=== PATIENT | female | born 1965 | race Caucasian/White ===

== ENCOUNTER 2016-11-29 15:54 | Emergency (ER) ==
[2016-11-29 15:54] VITALS: BMI 21.9
[2016-11-29 15:59] VITALS: BP 121/83; TEMP 98.2
[2016-11-29] MEDS ORDERED: DECADRON 4 MG/ML SDV IM STA (16:15)
[2016-11-29] MEDS ORDERED: TORADOL IM STA (16:15)
--- NOTE | 2016-11-29 17:17 | ED.PDOC ---
General ED Provider: Dr. BETHANY BENÍTEZ Chief Complaint: Foot Pain/Injury Stated Complaint: left foot pain Time Seen by Physician: 16:00 Mode of Arrival: Walk-In Information Source: Patient Exam Limitations: No limitations [facility] and Triage Documentation Reviewed and Agree: Yes Musculoskeletal Complaint Exam - Ankle/Foot Complaint/Exam Location of Injury: Reports: Left, Ankle, Foot Mechanism of Injury: Reports: No known trauma Onset/Duration: 1 day Symptoms Are: Reports: Still present Onset of Pain: Reports: Hours Initial Severity: Moderate Current Severity: Moderate Location: Reports: Discrete (big toe lefty) Character: Reports: Throbbing Alleviating: Reports: None Aggravating: Reports: None Able to Bear Weight: Yes Associated Signs and Symptoms: Denies: Swelling, Redness, Bruising, Fever, Weakness, Numbness, Tingling Related History: Reports: Similar episode Gout Risk Factors: Reports: >40 years old, HTN Related Surgical History: Reports: None Differential Diagnosis: Gout Review of Systems - Review Of Systems Constitutional: Reports: No symptoms Eyes: Reports: No symptoms Ears, Nose, Mouth, Throat: Reports: No symptoms Respiratory: Reports: No symptoms Cardiac: Reports: No symptoms GI: Reports: No symptoms : Reports: No symptoms Musculoskeletal: Reports: No symptoms Skin: Reports: No symptoms Neurological: Reports: No symptoms Endocrine: Reports: No symptoms Hematologic/Lymphatic: Reports: No symptoms All Other Systems: Reviewed and Negative Past Medical History - Past Medical History Previously Healthy: Yes Endocrine: Reports: None Cardiovascular: Reports: Hypertension Respiratory: Reports: None Hematological: Reports: None Gastrointestinal: Reports: None Genitourinary: Reports: None Neuro/Psych: Reports: None Musculoskeletal: Reports: None, Gout Cancer: Reports: None Last Menstrual Period: tubal ligation - Surgical History General Surgical History: Reports: None - Family History Family History: Reports: None - Social History Smoking Status: Current some day smoker Hx Substance Use: No Alcohol Screening: None Physical Exam - Physical Exam Appearance: Well-appearing, No pain distress, Well-nourished Eyes: JHONATAN, EOMI, Conjunctiva clear ENT: Ears normal, Nose normal, Oropharynx normal Respiratory: Airway patent, Breath sounds clear, Breath sounds equal, Respirations nonlabored Cardiovascular: RRR, Pulses normal, No rub, No murmur GI/: Soft, Nontender, No masses, Bowel sounds normal, No Organomegaly Musculoskeletal: Normal strength, ROM intact, No edema, No calf tenderness Skin: Warm, Dry, Normal color Neurological: Sensation intact, Motor intact, Reflexes intact, Cranial nerves intact, Alert, Oriented Psychiatric: Affect appropriate, Mood appropriate Critical Care Note - Critical Care Note Total Time (mins): 0 Course - Course Orders, Labs, Meds: Lab Review 11/29/16 16:45 Uric Acid 7.3 H Orders Category Date Time Status URIC ACID Stat LAB 11/29/16 16:45 Completed Dexamethasone 4 mg/ml Inj [Decadron 4 mg/ml Sdv] MEDS 11/29/16 16:15 Discontinued 4 mg IM ONCE STA Ketorolac Tromethamine [Toradol] MEDS 11/29/16 16:15 Discontinued 60 mg IM ONCE STA Medications Discontinued Medications Generic Name Dose Route Start Last Admin Trade Name Freq PRN Reason Stop Dose Admin Dexamethasone Sodium Phosphate 4 mg 11/29/16 16:15 11/29/16 16:32 Decadron 4 Mg/Ml Sdv IM 11/29/16 16:16 4 mg ONCE STA Administration Ketorolac Tromethamine 60 mg 11/29/16 16:15 11/29/16 16:30 Toradol IM 11/29/16 16:16 60 mg ONCE STA Administration Vital Signs: Temp Pulse Resp BP Pulse Ox 11/29/16 15:54 98.2 F 87 16 121/83 97 Departure - Departure Time of Disposition: 17:17 Disposition: HOME SELF-CARE Discharge Problem: Gout attack Qualifiers: Gout site: foot Gout etiology: unspecified cause Laterality: left Qualifier Code: (M10.9) Gout, unspecified Instructions: Gout (ED) Condition: Good Pt referred to PMD for follow-up: No Additional Instructions: Please call your Family Physician as soon as possible to schedule a follow-up appointment. Allergies/Adverse Reactions: Allergies No Known Allergies Allergy (Verified 11/29/16 15:59) Disposition Discussed With: Patient, Family
== END 2016-11-29 17:33 | disposition home or self-care (01) ==
LOC: ED 15:54
DX: M10.9 Gout, unspecified (principal); I10 Essential (primary) hypertension; F17.210 Nicotine dependence, cigarettes, uncomplicated
CPT/HCPCS: 36415; 84550; 96372; 99282

== ENCOUNTER 2017-07-15 10:35 | Emergency (ER) ==
[2017-07-15 10:35] VITALS: BMI 21.9
[2017-07-15 10:39] VITALS: BP 147/88; TEMP 98.9
--- NOTE | 2017-07-15 10:45 | ED.PDOC ---
General ED Provider: Dr. CARMEN LAMA JR Chief Complaint: Foot Pain/Injury Stated Complaint: HAVING A FLARE-UP OF GOUT HAS HAD FLARE-UPS IN THE PAST. [ End ]98.9 89 18 100 147/88 100% 147/88 05/18. ON ALLO PURINOL IN THE PAST NOT CURRENTLY TRIED WITH LAST FLARE AND DID NOT HELP, DECLINES X-RAY"I DID NOT HURT IT LIKE THAT". Dexamethasone Sodium Phosphate 4 mg 11/29/16. Ketorolac Tromethamine 60 mg 11/29/16 16:15. Hydrocodone/Acetaminophen [[place] 10-325 Tablet] 1 each PO Q6HR PRN #12 tablet 01/01/16. Indomethacin [Indocin] 50 mg PO BIDWM #10 capsule 01/01/16. Acetaminophen/Hydrocodone Bitart 1 tab04/01/14. Dexamethasone Sodium Phosphate 8 mg04/01/14. Ketorolac Tromethamine 60 mg Time Seen by Physician: 10:46 Mode of Arrival: Walk-In Information Source: Patient Exam Limitations: No limitations [facility] T[facility] Documentation Reviewed and Agree: No Review of Systems - Review Of Systems Constitutional: Reports: No symptoms Eyes: Reports: No symptoms Ears, Nose, Mouth, Throat: Reports: No symptoms Respiratory: Reports: No symptoms Cardiac: Reports: No symptoms GI: Reports: No symptoms : Reports: No symptoms Musculoskeletal: Reports: Gout, Joint pain Skin: Reports: Change in color Neurological: Reports: No symptoms Endocrine: Reports: No symptoms Hematologic/Lymphatic: Reports: No symptoms All Other Systems: Other Past Medical History - Past Medical History Previously Healthy: Yes Endocrine: Reports: None Cardiovascular: Reports: [place], Hypertension Respiratory: Reports: None Hematological: Reports: None Gastrointestinal: Reports: None Genitourinary: Reports: None Neuro/Psych: Reports: None Musculoskeletal: Reports: None, Gout Cancer: Reports: None Last Menstrual Period: N/A - Surgical History General Surgical History: Reports: Tubal ligation, - Family History Family History: Reports: Other (sister and father with gout) - Social History Smoking Status: Current some day smoker Hx Substance Use: No Alcohol Screening: None - Immunizations Tetanus Shot up to Date: Yes Physical Exam - Physical Exam Appearance: Well-appearing, Thin Pain Distress: Moderate Neck: Supple Respiratory: Airway patent Musculoskeletal: No calf tenderness (TENDER ENTIRE FOOT NOT INTO ANKLE NO ERYTHEMA NOTED PAINFUL 3-4 DAYS), Edema Critical Care Note - Critical Care Note Total Time (mins): 0 Course - Course Orders, Labs, Meds: Orders Category Date Time Status Ketorolac Tromethamine [Toradol] MEDS 07/15/17 10:55 Discontinued 60 mg IM ONCE STA Methylprednisolone Sod Succ/Pf [Solu-Medrol 125 mg] MEDS 07/15/17 10:55 Discontinued 125 mg IM ONCE STA Medications Discontinued Medications Generic Name Dose Route Start Last Admin Trade Name Hong PRN Reason Stop Dose Admin Ketorolac Tromethamine 60 mg 07/15/17 10:55 07/15/17 11:14 Toradol IM 07/15/17 10:56 60 mg ONCE STA Administration Methylprednisolone Sodium Succinate 125 mg 07/15/17 10:55 07/15/17 11:14 Solu-Medrol 125 Mg IM 07/15/17 10:56 125 mg ONCE STA Administration Vital Signs: Temp Pulse Resp BP Pulse Ox 07/15/17 10:36 98.9 F 89 18 147/88 H 100 Departure - Departure Time of Disposition: 11:50 Disposition: HOME SELF-CARE Discharge Problem: Foot pain, right Instructions: Low Purine Diet (ED), Gout (ED), Metatarsalgia (GEN) Condition: Good Pt referred to PMD for follow-up: Yes Additional Instructions: may try indocin gfor pain recheck PMD one week discuss allopurinol and colchicine for gout episodes note that this episode is not typical gout return if fever over 101.0 if new symptoms Allergies/Adverse Reactions: Allergies No Known Allergies Allergy (Verified 07/15/17 10:39)
[2017-07-15] MEDS ORDERED: SOLU-MEDROL 125 MG IM STA (10:55)
[2017-07-15] MEDS ORDERED: TORADOL IM STA (10:55)
== END 2017-07-15 11:55 | disposition home or self-care (01) ==
LOC: ED 10:35
DX: M79.671 Pain in right foot (principal); F17.210 Nicotine dependence, cigarettes, uncomplicated
CPT/HCPCS: 96372; 99282

== ENCOUNTER 2017-07-19 07:04 | Emergency (ER) ==
[2017-07-19 07:05] VITALS: BMI 21.9
[2017-07-19 07:09] VITALS: BP 130/92; TEMP 97.9
--- NOTE | 2017-07-19 07:26 | ED.PDOC ---
General ED Provider: Dr. BETHANY BENÍTEZ Chief Complaint: Foot Pain/Injury Stated Complaint: right foot pain Time Seen by Physician: 07:12 (returns after 4 days gout pain has returned ) Mode of Arrival: Walk-In Information Source: Patient Exam Limitations: No limitations [facility] T[facility] Documentation Reviewed and Agree: Yes Musculoskeletal Complaint Exam - Ankle/Foot Complaint/Exam Location of Injury: Reports: Right, Foot, Toe #1 Mechanism of Injury: Reports: No known trauma Onset/Duration: 4 days Symptoms Are: Reports: Still present Onset of Pain: Reports: Immediate Initial Severity: Moderate Current Severity: Moderate Location: Reports: Discrete Character: Reports: Aching Alleviating: Reports: Rest Aggravating: Reports: Movement, Weight bearing Able to Bear Weight: Yes Associated Signs and Symptoms: Denies: Swelling, Redness, Bruising, Fever, Weakness, Numbness, Tingling Related History: Reports: Similar episode Gout Risk Factors: Reports: >40 years old Related Surgical History: Reports: None Lower Extremity Findings: Present: Warmth, Tenderness (big toe see photos), Limited range of motion. Absent: Swelling, Ecchymosis, Abnormal contour, Rotation, Ligamentous instability, Laceration, Erythema, Blisters, Other joint pain, Foreign body Achilles Tendon Abnormality: No Tenderness: Present: Digits (number 1) Limited Range of Motion: Present: Dorsiflexion, Plantarflexion. Absent: Inversion, Eversion Differential Diagnosis: Gout Review of Systems - Review Of Systems Constitutional: Reports: No symptoms Eyes: Reports: No symptoms Ears, Nose, Mouth, Throat: Reports: No symptoms Respiratory: Reports: No symptoms Cardiac: Reports: No symptoms GI: Reports: No symptoms : Reports: No symptoms Musculoskeletal: Reports: Joint pain (big toe right ) Skin: Reports: No symptoms Neurological: Reports: No symptoms Endocrine: Reports: No symptoms Hematologic/Lymphatic: Reports: No symptoms All Other Systems: Reviewed and Negative Past Medical History - Past Medical History Previously Healthy: Yes Endocrine: Reports: None Cardiovascular: Reports: Hypertension Respiratory: Reports: None Hematological: Reports: None Gastrointestinal: Reports: None Genitourinary: Reports: None Neuro/Psych: Reports: None Musculoskeletal: Reports: None, Gout Cancer: Reports: None Last Menstrual Period: long time - Surgical History General Surgical History: Reports: None - Family History Family History: Reports: Other (sister and father with gout) - Social History Smoking Status: Current some day smoker Hx Substance Use: No Alcohol Screening: None Physical Exam - Physical Exam Appearance: Well-appearing, No pain distress, Well-nourished Eyes: JHONATAN, EOMI, Conjunctiva clear ENT: Ears normal, Nose normal, Oropharynx normal Respiratory: Airway patent, Breath sounds clear, Breath sounds equal, Respirations nonlabored Cardiovascular: RRR, Pulses normal, No rub, No murmur GI/: Soft, Nontender, No masses, Bowel sounds normal, No Organomegaly Musculoskeletal: Limited ROM (big toe right see photos) Skin: Warm, Dry, Normal color Neurological: Sensation intact, Motor intact, Reflexes intact, Cranial nerves intact, Alert, Oriented Psychiatric: Affect appropriate, Mood appropriate Critical Care Note - Critical Care Note Total Time (mins): 0 Course - Course Vital Signs: Temp Pulse Resp BP Pulse Ox 07/19/17 07:05 97.9 F 86 20 130/92 H 99 Departure - Departure Time of Disposition: 07:25 Disposition: HOME SELF-CARE Discharge Problem: Foot pain, right Instructions: Gout (ED), Low Purine Diet (ED) Condition: Good Pt referred to PMD for follow-up: Yes Additional Instructions: Please call your Family Physician as soon as possible to schedule a follow-up appointment.TAKE MEDS ON FULL STOMACH PLEASE Allergies/Adverse Reactions: Allergies No Known Allergies Allergy (Verified 07/19/17 07:09) Disposition Discussed With: Patient
== END 2017-07-19 07:43 | disposition home or self-care (01) ==
LOC: ED 07:04
DX: M79.671 Pain in right foot (principal); M10.9 Gout, unspecified; F17.210 Nicotine dependence, cigarettes, uncomplicated
CPT/HCPCS: 99282

== ENCOUNTER 2017-07-26 10:58 | Outpatient (CLI) ==
[2013-01-31 12:01] VITALS: TEMP 97
--- NOTE | 2017-07-26 11:32 | DI ---
EXAM: Three views of the right foot. History: Lateral right foot pain. Comparison: Right foot radiograph 04/01/2014 Findings: No acute fracture or dislocation. No abnormal calcifications or radiopaque foreign bodies . Joint spaces are preserved. Impression: No acute osseous abnormality
[2017-07-26 14:21] LABS: BASOPHILS % (AUTO) 0.5 % (0.0-3.0); EOSINOPHILS # (AUTO) 0.1 K/ul (0.0-0.7); EOSINOPHILS % (AUTO) 1.4 % (0.0-7.0); HEMATOCRIT 42.8 % (37.0-47.0); HEMOGLOBIN 14.5 g/dl (12.0-16.0); IMMATURE GRANULOCYTE % (AUTO) 0.3 % (0.0-5.0); LYMPHOCYTES # (AUTO) 2.2 K/uL (0.60-3.4); LYMPHOCYTES % (AUTO) 25.2 (10.0-50.0); MEAN CORPUSCULAR HEMOGLOBIN 35.6 pg (27.0-31.0); MEAN CORPUSCULAR HGB CONC 33.9 (31.8-35.4); MEAN CORPUSCULAR VOLUME 105.2 fl (81.0-99.0); MONOCYTES # (AUTO) 0.7 K/uL (0.4-2.0); MONOCYTES % (AUTO) 7.7 (0-10); NEUTROPHILS # (AUTO) 5.6 K/ul (2.0-6.9); NEUTROPHILS % (AUTO) 64.9; PLATELET COUNT 348 10^3/uL (140-440); RED BLOOD COUNT 4.07 10^6/ul (4.20-5.40); WHITE BLOOD COUNT 8.65 K/ul (4.6-10.2)
[2017-07-26 15:34] LABS: ALBUMIN 4.1 g/dL (3.4-5.0); ALBUMIN/GLOBULIN RATIO 0.89; ANION GAP 17.6; BILIRUBIN,TOTAL 0.5 mg/dL (0.00-1.20); BUN/CREATININE RATIO 9.09; CALCIUM 9.9 mg/dL (8.2-10.2); CHOL/HDL RATIO 2.8 (4.5-5.5); CREATININE 0.77 mg/dL (0.60-1.30); POTASSIUM 3.6 mmol/L (3.5-5.10); TOTAL PROTEIN 8.7 g/dL (6.4-8.2); URIC ACID 9.1 mg/dL (2.4-6.0)
== END 2017-07-26 10:59 | disposition home or self-care (01) ==
LOC: RAD 10:58
PROVIDERS: ATTEND Nurse Practitioner Family
DX: M79.671 Pain in right foot (principal); Z00.00 Encounter for general adult medical examination without abnormal findings; I10 Essential (primary) hypertension
CPT/HCPCS: 36415; 80053; 80061; 84443; 84550; 85025

== ENCOUNTER 2017-07-29 08:50 | Outpatient (CLI) ==
[2013-01-31 12:01] VITALS: TEMP 97
--- NOTE | 2017-07-30 08:51 | MAMMO ---
EXAM: Bilateral digital screening mammogram (2-D and 3-D) History: Screening Comparison: Bilateral mammogram 11/29/2015 Findings: MLO and CC views of bilateral breasts demonstrate scattered fibroglandular breast parenchy ma. CAD was reviewed by the radiologist. Tomosynthesis was performed. There are no dominant masses , no suspicious microcalcifications and no architectural distortions Impression: Stable negative mammogram. Recommend followup routine screening mammography in 1 year. BIRADS 1
== END 2017-07-29 08:51 | disposition home or self-care (01) ==
LOC: RAD 08:50
PROVIDERS: ATTEND Nurse Practitioner Family
DX: Z12.31 Encounter for screening mammogram for malignant neoplasm of breast (principal)
CPT/HCPCS: 77067

== ENCOUNTER 2017-08-11 13:34 | Outpatient (CLI) ==
[2013-01-31 12:01] VITALS: TEMP 97
[2017-08-04 10:43] VITALS: BMI 21.9
== END 2017-08-11 13:35 | disposition home or self-care (01) ==
LOC: LAB 13:34
PROVIDERS: ATTEND Nurse Practitioner Family
DX: M1A.0710 Idiopathic chronic gout, right ankle and foot, without tophus (tophi) (principal)
CPT/HCPCS: 36415; 80053; 84550

== ENCOUNTER 2017-09-16 13:57 | Outpatient (CLI) ==
[2013-01-31 12:01] VITALS: TEMP 97
[2017-08-04 10:43] VITALS: BMI 21.9
--- NOTE | 2017-09-16 14:20 | DI ---
Exam: Three x-rays of the sacrum and coccyx. Comparison: Lumbar spine films performed on 08/05/2007. Reason for exam: Fall. FINDINGS: The pelvic ring appears intact. The sacroiliac joint spaces are symmetric. The coccyx ap pears grossly unremarkable. Impression: No acute fracture is seen within the sacrum or coccyx.
--- NOTE | 2017-09-16 14:25 | DI ---
EXAM: Two views of the right hip HISTORY: Right hip pain post fall. COMPARISON: CT abdomen pelvis 11/20/2015 FINDINGS: There is no cortical irregularity or displaced fracture of the right hip. There is no lyti c or blastic lesion. The pelvis is intact. The soft tissues are normal. IMPRESSION: No acute abnormality or displaced fracture of the right hip.
== END 2017-09-16 13:58 | disposition home or self-care (01) ==
LOC: RAD 13:57
PROVIDERS: ATTEND Nurse Practitioner Family
DX: M25.551 Pain in right hip (principal); M79.1 Myalgia; W19.XXXA Unspecified fall, initial encounter

== ENCOUNTER 2018-01-25 08:46 | Outpatient (CLI) ==
[2013-01-31 12:01] VITALS: TEMP 97
[2017-08-04 10:43] VITALS: BMI 21.9
== END 2018-01-25 08:47 | disposition home or self-care (01) ==
LOC: CAR 08:46
PROVIDERS: ATTEND Nurse Practitioner Family
DX: R06.02 Shortness of breath (principal); R05 Cough; Z72.0 Tobacco use

== ENCOUNTER 2018-02-14 10:28 | Outpatient (CLI) ==
[2013-01-31 12:01] VITALS: TEMP 97
[2017-08-04 10:43] VITALS: BMI 21.9
--- NOTE | 2018-02-14 12:15 | DI ---
Exam: Two views of the thoracolumbar spine. Comparison: Lumbar spine x-ray performed 08/05/2007. Reason for exam: Fall. FINDINGS: No acute vertebral body height loss is seen. There is mild multilevel degenerative diseas e with osteophyte formation and intervertebral body disc space height narrowing most notably at L4-5 and L5-S1. There is straightening of the lumbar lordotic curve. Impression: 1. No acute fracture in the lumbar spine. 2. Degenerative disease with intervertebral body disc space height narrowing and osteophyte formatio n
--- NOTE | 2018-02-14 12:21 | DI ---
EXAM: Sacrum and coccyx three view HISTORY: Unspecified fall, initial encounter COMPARISON: 09/16/2017 FINDINGS: Sacroiliac joints intact. No fracture or dislocation. Degenerative change in the spine. No focal soft tissue abnormality. IMPERSSION: No fracture or dislocation.
== END 2018-02-14 10:29 | disposition home or self-care (01) ==
LOC: RAD 10:28
PROVIDERS: ATTEND Nurse Practitioner Family
DX: M54.9 Dorsalgia, unspecified (principal); M25.552 Pain in left hip; M25.551 Pain in right hip; W19.XXXA Unspecified fall, initial encounter

== ENCOUNTER 2018-05-12 12:04 | Outpatient (CLI) ==
[2013-01-31 12:01] VITALS: TEMP 97
[2017-08-04 10:43] VITALS: BMI 21.9
== END 2018-05-12 12:05 | disposition home or self-care (01) ==
LOC: RHC-LAB 12:04
PROVIDERS: ATTEND Nurse Practitioner Family
DX: R07.9 Chest pain, unspecified (principal); F10.10 Alcohol abuse, uncomplicated; R53.83 Other fatigue
CPT/HCPCS: 36415; 80053; 80061; 80307; 82306; 82607; 85025; 93005; 93010

== ENCOUNTER 2018-11-02 11:55 | Outpatient (CLI) ==
[2013-01-31 12:01] VITALS: TEMP 97
[2017-08-04 10:43] VITALS: BMI 21.9
== END 2018-11-02 11:56 | disposition home or self-care (01) ==
LOC: RHC-LAB 11:55
PROVIDERS: ATTEND Nurse Practitioner Family
DX: Z12.31 Encounter for screening mammogram for malignant neoplasm of breast (principal); R06.02 Shortness of breath; I25.2 Old myocardial infarction; R11.2 Nausea with vomiting, unspecified; I10 Essential (primary) hypertension
CPT/HCPCS: 36415; 80048; 83735

== ENCOUNTER 2018-11-04 08:42 | Outpatient (CLI) ==
[2013-01-31 12:01] VITALS: TEMP 97
[2017-08-04 10:43] VITALS: BMI 21.9
--- NOTE | 2018-11-04 10:01 | MAMMO ---
EXAM: Digital screening mammogram with tomosynthesis HISTORY: Screening COMPARISON: 07/29/2017 FINDINGS: Digital MLO and CC views of the right and left breast were performed. Tomosynthesis was performed. Computer aided detection utilized. There are scattered fibroglandular densities. Benign bilateral calcifications. There is no evidence for mass, asymmetry, distortion, or suspicious calci fications in either breast. IMPRESSION: 1. No evidence of malignancy in the right or left breast. 2. Annual screening mammogram is recommended in one year. BIRADS category 2, benign
== END 2018-11-04 08:43 | disposition home or self-care (01) ==
LOC: RAD 08:42
PROVIDERS: ATTEND Nurse Practitioner Family
DX: Z12.31 Encounter for screening mammogram for malignant neoplasm of breast (principal)

== ENCOUNTER 2018-11-16 06:34 | Outpatient (CLI) ==
[2013-01-31 12:01] VITALS: TEMP 97
[2017-08-04 10:43] VITALS: BMI 21.9
--- NOTE | 2018-11-16 10:15 | ECHO2D ---
Date of Exam: 11/16/18 Ordering Physician: CARMEN MELO APRN Room #: OP Reason for Echo: SOB, CAD, ANGIOPLASTY 2003 M-Mode Normal Adult Results LV Dimensions Normal Adult Results AoV Opening excursions >1.6 >1.6 LVEDD-base- 3.5-5.8 3.5 Ao root dimensions 2.0-3.7 3.3 LVESD-base- 3.1-4.6 L. Atrium dimensions 1.9-3.8 3.6 Post. Wall thickness 0.8-1.1 1.2 IV septum (thickness) 0.7-1.2 1.2 Post. Wall excursion 0.72-1.3 NORMAL Septal motion NORMAL Systolic motion R. Ventricular cavity 1.5-2.0 NORMAL LVEF 60% 78% Paradoxical septal wall motion NORMAL 2-D : 2-D M Mode Echocardiogram was performed using apical four chamber and left parasternal long and short axis views. Mitral, tricuspid and aortic valves appear to be normal. Contractility of the left ventricle seems to be normal, so is the cavity size. Left atrial cavity size and aortic root appear to be normal. There is no pericardial effusion. There is no thrombus noted in the left ventricular or left aortic cavity. No mitral valve prolapse noted. M-MODE: MV: NORMAL AV: NORMAL TV: NORMAL PV: CHAMBER SIZE: NORMAL WALL MOTION: NORMAL PERICARDIUM: NORMAL INTERPRETATION: 1. BORDERLINE LEFT VENTRICULAR HYPERTROPHY 2. NORMAL LEFT VENTRICULAR CONTRACTILITY 3. NORMAL VALVES MTDD
== END 2018-11-16 06:35 | disposition home or self-care (01) ==
LOC: CAR 06:34
PROVIDERS: ATTEND Nurse Practitioner Family
DX: R06.02 Shortness of breath (principal); I25.2 Old myocardial infarction

== ENCOUNTER 2018-11-17 06:58 | Outpatient (CLI) ==
[2013-01-31 12:01] VITALS: TEMP 97
[2017-08-04 10:43] VITALS: BMI 21.9
--- NOTE | 2018-11-17 09:28 | STRESSECHO ---
Date of Test: 11/17/18 Ordering Physician: CARMEN MELO APRN Occupation: HOUSEWIFE Reason for Exam: SOB, HTN, HYPERLIPIDEMIA Smoking History: 20 PK/YRS Height: 62 " Weight: 125 LBS Current Medications: LISINOPRIL, SIMVASTATIN, FLONASE, ESCITALOPRAM Resting EKG: SINUS RHYTHM/ NO ACUTE CHANGES Target Heart Rate: 142/168 S-T SEGMENT STAGE MPH/GRADE HEART RATE BPM BLOOD PRESSURE MMHG RHYTHM +/- ELEVATION DEPRESSION SYMPTOMS AT REST 80 BPM 138/80 MMHG SR X NONE 1 1.7/10% 130 BPM 182/90 MMHG SR X NONE 2 2.5/12% 3 3.4/14% 4 4.2/16% 5 5.0/18% Immediately After 141 BPM 142/90 MMHG SR X SHORT OF AIR Minutes Post Exercise 4:00 84 BPM 142/82 MMHG SR X NONE Minutes Post Exercise DURATION OF EXERCISE: 5:30 MAXIMUM HEART RATE REACHED: 141 BPM REASON FOR TERMINATION: SHORT OF AIR 99% OXYGEN SATURATION WITH EXERCISE ON ROOM AIR METS 7.0 INTERPRETATION: 1. NO EVIDENCE OF ISCHEMIA BY ST-T WAVE 2. NO CHEST PAIN OR CHEST DISCOMFORT 3. BLOOD PRESSURE RESPONSE: NORMAL AT REST AND WITH EXERCISE 4. NO ARRHYTHMIAS NORMAL LEFT VENTRICULAR CONTRACTILITY--RESTING AND POST EXERCISE MTDD
--- NOTE | 2018-11-17 09:30 | ECHOSTRESS ---
Date of Exam: 11/17/18 Ordering Physician: CARMEN MELO APRN Reason for Echo: SOB, HX CAD, STRESS TEST--NO ISCHEMIA M-Mode Normal Adult Results LV Dimensions Normal Adult Results AoV Opening excursions >1.6 LVEDD-base- 3.5-5.8 Ao root dimensions 2.0-3.7 LVESD-base- 3.1-4.6 L. Atrium dimensions 1.9-3.8 Post. Wall thickness 0.8-1.1 IV septum (thickness) 0.7-1.2 Post. Wall excursion 0.72-1.3 Septal motion Systolic motion R. Ventricular cavity 1.5-2.0 LVEF 60% Paradoxical septal wall motion 2-D: NORMAL LEFT VENTRICULAR CONTRACTILITY--RESTING AND POST EXERCISE M-MODE: MV: AV: TV: PV: CHAMBER SIZE: WALL MOTION: NORMAL LEFT VENTRICULAR CONTRACTILITY--RESTING AND POST EXERCISE PERICARDIUM: INTERPRETATION: 1. NORMAL LEFT VENTRICULAR CONTRACTILITY--RESTING AND POST EXERCISE MTDD
--- NOTE | 2018-11-17 11:24 | STRESSECHO ---
Date of Test: [] Ordering Physician: [] Occupation:[] Reason for Exam: [] Smoking History: [] Height: [] Weight: [] Current Medications: [] Resting EKG: [] Target Heart Rate: [] S-T SEGMENT STAGE MPH/GRADE HEART RATE BPM BLOOD PRESSURE MMHG RHYTHM +/- ELEVATION DEPRESSION SYMPTOMS AT REST [] [] [] [] [] [] [] 1 1.7/10% [] [] [] [] [] [] [] 2 2.5/12% [] [] [] [] [] [] [] 3 3.4/14% [] [] [] [] [] [] [] 4 4.2/16% [] [] [] [] [] [] [] 5 5.0/18% [] [] [] [] [] [] [] Immediately After [] [] [] [] [] [] [] Minutes Post Exercise [] [] [] [] [] [] [] [] Minutes Post Exercise [] [] [] [] [] [] [] [] DURATION OF EXERCISE: [] MAXIMUM HEART RATE REACHED: [] REASON FOR TERMINATION: [] INTERPRETATION: 1. [] 2. [] 3. [] 4. [] MTDD
== END 2018-11-17 06:59 | disposition home or self-care (01) ==
LOC: CAR 06:58
PROVIDERS: ATTEND Nurse Practitioner Family
DX: R06.02 Shortness of breath (principal); I25.2 Old myocardial infarction

== ENCOUNTER 2019-03-05 07:55 | Emergency (ER) ==
[2019-03-05 08:00] VITALS: BP 150/83; TEMP 97.2; BMI 21.2
--- NOTE | 2019-03-05 08:01 | ED.PDOC ---
General ED Provider: Dr. PARAM ARREOLA Chief Complaint: Nausea/Vomiting Stated Complaint: Woke up; vomited 3 times. No diarrhea, cough for 2 weeks. Time Seen by Physician: 08:01 Mode of Arrival: Wheelchair Primary Care Provider: CARMEN MELO Nursing and Triage Documentation Reviewed and Agree: Yes Does patient meet sepsis criteria?: No System Inflammatory Response Syndrome: Not Applicable Sepsis Protocol: For patient's 13 years and over: Temp is 96.8 and below OR 101 and greater Pulse >90 BPM Resp >20/minute Acutely Altered Mental Status Are patient's symptoms suggestive of a new infection, such as: -Pneumonia -Skin, Soft Tissue -Endocarditis -UTI -Bone, Joint Infection -Implantable Device -Acute Abdominal Infection -Wound Infection -Meningitis -Blood Stream Catheter Infection -Unknown Review of Systems - Review Of Systems Constitutional: Reports: Malaise Respiratory: Reports: Cough (2 weeks). Denies: Short of air, Stridor, Wheezing GI: Reports: Nausea All Other Systems: Reviewed and Negative Past Medical History - Past Medical History Previously Healthy: Yes Endocrine: Reports: None Cardiovascular: Reports: Hypertension Respiratory: Reports: None Hematological: Reports: None Gastrointestinal: Reports: None Genitourinary: Reports: None Neuro/Psych: Reports: None Musculoskeletal: Reports: None, Gout Cancer: Reports: None - Surgical History General Surgical History: Reports: None - Family History Family History: Reports: Other (sister and father with gout) - Social History Smoking Status: Current some day smoker Hx Substance Use: No Alcohol Screening: None Physical Exam - Physical Exam Appearance: Ill-appearing Ill-appearing: Mild Pain Distress: None Eyes: JHONATAN, EOMI ENT: Oropharynx normal Neck: Supple Respiratory: Airway patent, Breath sounds clear, Breath sounds equal, Respirations nonlabored Cardiovascular: RRR, Pulses normal GI/: Soft, Nontender, Bowel sounds hyperactive Musculoskeletal: Normal strength Skin: Warm, Dry, Normal color Neurological: Alert, Oriented Psychiatric: Affect appropriate, Mood appropriate, Anxious Interpretation - Radiology Interpretation Radiology Interpretation By: ED Physician Radiology Results: Negative Exam Interpreted: CXR Re-Evaluation - Re-Evaluation Time of Re-Evaluation: 09:05 Status: Improved Vital Signs Stable: Yes Appearance: NAD Neuro: Alert and Oriented X3 Critical Care Note - Critical Care Note Total Time (mins): 10 Course - Course Orders, Labs, Meds: Orders Category Date Time Status Promethazine HCl [Phenergan 25 mg/ml Vial] MEDS 03/05/19 08:07 Discontinued 25 mg IM ONCE STA CHEST, 2 VIEWS PA & LAT Stat RADS 03/05/19 08:07 Completed Medications Discontinued Medications Generic Name Dose Route Start Last Admin Trade Name Freq PRN Reason Stop Dose Admin Promethazine HCl 25 mg 03/05/19 08:07 03/05/19 08:17 Phenergan 25 Mg/Ml Vial IM 03/05/19 08:08 25 mg ONCE STA Administration Vital Signs: Temp Pulse Resp BP Pulse Ox 03/05/19 07:55 97.2 F L 79 16 150/83 H 98 Departure - Departure Time of Disposition: 09:03 Disposition: HOME SELF-CARE Discharge Problem: Gastritis Qualifiers: Gastritis type: other gastritis Chronicity: acute Gastritis bleeding: without bleeding Qualified Code(s): K29.00 - Acute gastritis without bleeding Instructions: Gastritis (ED), Gastritis (DC) Condition: Stable Pt referred to PMD for follow-up: Yes (Follow up; call for appointment) IPMP verified?: No (Not indicated) Additional Instructions: Follow up as needed with primary care; small sips of clear liquids only for the next two hours; then clear liquids only for 4 more hours; use zofran if needed for nausea. Advance diet thereafter as tolerated. Follow up with primary care if cough continues next week. Prescriptions: Ondansetron [Zofran Odt] 4 mg PO Q6HR PRN #10 tab.rapdis PRN Reason: Nausea / Vomiting Allergies/Adverse Reactions: Allergies No Known Allergies Allergy (Uncoded 03/05/19 07:58) Home Medications: Ambulatory Orders Ondansetron [Zofran Odt] 4 mg PO Q6HR PRN #10 tab.rapdis 03/05/19
[2019-03-05] MEDS ORDERED: PHENERGAN 25 MG/ML VIAL IM STA (08:07)
--- NOTE | 2019-03-05 08:37 | DI ---
EXAM: PA and lateral views of the chest HISTORY: Cough COMPARISON: Chest Xray from 06/06/2009 FINDINGS: Lungs are clear with no lobar consolidation, failure, large effusion or significant atelect asis. Cardiac and mediastinal silhouettes show no acute abnormality. No acute osseous or soft tissu e abnormalities. IMPRESSION: No active disease.
== END 2019-03-05 09:13 | disposition home or self-care (01) ==
LOC: ED 07:55
DX: K29.00 Acute gastritis without bleeding (principal); I10 Essential (primary) hypertension; F17.210 Nicotine dependence, cigarettes, uncomplicated
CPT/HCPCS: 96372; 99283